=== PATIENT | male | born 1995 | race Caucasian/White ===

== ENCOUNTER 2023-10-30 06:16 | Day surgery (SDC) | payer OTHER, SELFPAY ==
--- NOTE | 2023-10-30 07:21 | HP.FOC2 ---
Focused History & Physical
Chief Complaint
HPI:
Chief Complaint: Right inguinal hernia
HPI / Indication for Planned Procedure: Patient is a 28-year-old male recently seen in outpatient surgical evaluation secondary to a history of right inguinal swelling. His symptoms are now present on a daily basis. There is some extension down
towards the scrotal region when he is doing heavier lifting or exertion at work. 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
Relevant Past Medical History: Negative
Relevant Social History: Negative
Relevant Family History: Negative
Relevant Past Surgical History: Positive for (Varicocelectomy)
Review of Systems
Review of Pertinent Systems: All Systems Negative
Medication
See Medication form for detailed medications: Yes
Medication List (including Herbals & OTC):
tadalafil 2.5 mg tablet 2.5 mg PO PRN PRN ED 10/26/23
Medications Reviewed: Yes
Allergies and Reactions
Patient has Allergies: Yes
Noted Allergies and Reactions:
Allergy/AdvReac Type Severity Reaction Status Date / Time
No Known Allergies Allergy Unverified 10/26/23 09:48
Pertinent Physical Exam
All Other Systems: Negative
Head/Neck: Normal
Lungs: Normal
Heart: Normal
Abdomen: Other (Reducible right inguinal hernia)
Extremities: Normal
Neurological: Normal
Diagnosis / Assessment
Patient is a 28-year-old male presenting for scheduled operative correction symptomatic right inguinal hernia
Plan / Procedure
Robotic assisted laparoscopic repair of right inguinal hernia with mesh
Anesthesia/Sedation to be done by Anesthesia Provider: Yes
[2023-10-30 07:27] VITALS: BMI 18.7
[2023-10-30 07:36] VITALS: BP 127/59
[2023-10-30] MEDS: NORMOSOL-R 1000 IV (07:52)
[2023-10-30] MEDS: TYLENOL 1000 MG PO (07:53)
[2023-10-30 07:58] VITALS: BMI 18.7
--- NOTE | 2023-10-30 08:38 | W.SUR.PREOP ---
Pre-Operative Surgical Note
-
I have examined this patient prior to the performance of the scheduled procedure.
The patient's condition is unchanged from the time of the current History and
Physical and the patient is able to undergo the scheduled procedure.
--- NOTE | 2023-10-30 10:35 | W.IMMPOSTOP ---
Addendum entered and electronically signed by Con Rodriguez MD 10/30/23 10:42:
#[id number]
Original Note:
Surgical Immed Post Op Note
-
Primary Surgeon: Jennifer
Assisting Surgeon: None
Pre-op Diagnosis: RIH
Post-op Diagnosis: RIH - indirect
Procedure Performed: RAL TAIWO RIH repair with mesh; 3dmax large mid
Anesthesia Type: GETA + 0.25% Marcaine
Specimen / Cultures: none
Estimated Blood Loss: 4mL
Complications: none
Operative Findings: Right indirect inguinal hernia. 3D max large mid weight mesh repair. No additional notable intra-abdominal findings.
Updated patient's father via phone call and left a voice message postop.
[2023-10-30 10:40] VITALS: BP 122/59
[2023-10-30 12:02] VITALS: BP 113/60
[2023-10-30 12:31] VITALS: BP 122/63
== END 2023-10-30 12:45 | disposition home or self-care (01) ==
LOC: SDS 06:16
PROVIDERS: ATTENDING PHYSICIAN Surgery
DX: K40.90 Unilateral inguinal hernia, without obstruction or gangrene, not specified as recurrent (principal)
CPT/HCPCS: 49505; C1781

== ENCOUNTER → 2024-08-26 16:51 | Outpatient (REF) | payer OTHER, SELFPAY | LOC: RAD 16:51 | PROVIDERS: ATTENDING PHYSICIAN Specialist; FAMILY PHYSICIAN Family Medicine | DX: N28.1 Cyst of kidney, acquired (principal) | CPT/HCPCS: 76775 ==